=== PATIENT | female | born 1955 | race Caucasian/White ===

== ENCOUNTER 2019-01-25 14:06 | Emergency (ER) | payer BC ==
[2019-01-25 14:15] VITALS: BP 170/100
[2019-01-25 14:37] LABS: Influenza A Molecular NEGATIVE (Negative); Influenza B Molecular NEGATIVE (Negative)
--- NOTE | 2019-01-25 14:37 | UC ---
FLU HPI - HPI Summary HPI Summary: 63 year old female with PMH + for HTN, on lisinopril with cough, nasal congestion, chills, body aches, mild throat pain x 1-2 days. worst last night , difficulty sleeping due to throat pain, cough. - History of Current Complaint Chief Complaint: UCGeneralIllness Stated Complaint: FLU LIKE SYMPTOMS Time Seen by Provider: 01/25/19 14:22 Hx Obtained From: Patient ?: No Onset/Duration: Sudden Onset, Lasting Days Severity Currently: Mild Severity Initially: Mild Pain Intensity: 0 Pain Scale Used: 0-10 Numeric Associated Signs & Symptoms: Positive: Myalgia, Cough, Sore Throat, Nasal Congestion, Headache Related Hx: Possible Flu/Infectious Exposure - Allergy/Home Medications Allergies/Adverse Reactions: Allergies Allergy/AdvReac Type Severity Reaction Status Date / Time No Known Allergies Allergy Verified 01/25/19 14:14 PMH/Surg Hx/FS Hx/Imm Hx Previously Healthy: Yes - HTN - Surgical History Surgical History: Yes Surgery Procedure, Year, and Place: oovarectomy - Family History Known Family History: Positive: Cardiac Disease - father, and mother - Social History Alcohol Use: Daily Alcohol Amount: 1-2 GLASSES OF WINE Substance Use Type: None Smoking Status (MU): Never Smoked Tobacco Have You Smoked in the Last Year: No Review of Systems All Other Systems Reviewed And Are Negative: Yes Constitutional: Positive: Chills, Fatigue ENT: Positive: Sore Throat, Nasal Discharge, Sinus Congestion, Sinus Pain/ Tenderness Respiratory: Positive: Cough Is Patient Immunocompromised?: No Physical Exam Triage Information Reviewed: Yes Appearance: No Pain Distress, Well-Nourished, Ill-Appearing - mild Vital Signs: Initial Vital Signs Temp 98.3 F 01/25/19 14:11 Pulse 75 01/25/19 14:11 Resp 18 01/25/19 14:11 BP 170/100 01/25/19 14:11 Pulse Ox 98 01/25/19 14:11 Vital Signs Reviewed: Yes Eyes: Positive: Conjunctiva Clear ENT: Positive: Pharyngeal erythema - mild, TMs normal, Sinus tenderness - maxillary, Uvula midline. Negative: TM bulging, TM dull, TM red, Tonsillar swelling, Tonsillar exudate Neck: Positive: Supple, Nontender, Enlarged Nodes @ - miniaml submand, periaur b /l tenderness Respiratory: Positive: Chest non-tender, Lungs clear, Normal breath sounds, No respiratory distress, No accessory muscle use. Negative: Crackles, Rhonchi, Stridor, Wheezing Cardiovascular: Positive: RRR, No Murmur Psychological Exam: Normal Flu Course/Dx - Course Course Of Treatment: rapi dflu negative, sinusitis, abx given, follow up with PCP if no improvement within 2-3 days - Differential Dx/Diagnosis Differential Diagnosis/HQI/PQRI: RSV, Upper Respiratory Infection Provider Diagnosis: Sinusitis Discharge - Sign-Out/Discharge Documenting (check all that apply): Patient Departure All imaging exams completed and their final reports reviewed: No Studies - Discharge Plan Condition: Good Disposition: HOME Prescriptions: Azithromyxin LAUREN (NF) [Z-Lauren (Zithromax) 250 mg tabs #6] 2 tab PO .TODAY, THEN 1 DAILY #6 tab Patient Education Materials: Sinusitis (ED) Referrals: Holli Leach MD [Primary Care Provider] - Additional Instructions: - Increase fluid intake - Humidifier at night to help with coughing - Good Hygiene, hand washing to prevent spread - Over the counter medications for symptoms - Motrin/ Tylenol as needed for pain, fever - Antibiotics as directed - Billing Disposition and Condition Condition: GOOD Disposition: Home
== END 2019-01-25 14:47 | disposition home or self-care (01) ==
LOC: UCEAST 14:06
DX: J32.9 Chronic sinusitis, unspecified (principal); I10 Essential (primary) hypertension
CPT/HCPCS: 99212; G0463

== ENCOUNTER 2019-06-27 16:10 | Emergency (ER) | payer BC ==
[2019-06-27] MEDS ORDERED: diPHENhydraMINE IV* 50 MG/ML 1 ml VIAL (BENADRYL) IM ONE (16:16)
[2019-06-27] MEDS ORDERED: methylPREDNISolone 125 MG* 2 ML VIAL IM ONE (16:17)
[2019-06-27 16:19] VITALS: BP 195/110
[2019-06-27] MEDS ORDERED: EPINEPHRINE 1 MG/ML 1 ML VIAL IM ONE (16:20)
--- NOTE | 2019-06-27 16:24 | UC ---
Allergic Reaction HPI - HPI Summary HPI Summary: Patient is havingan allergic reaction to 3 bee stings from 45 min ago. one on the 2nd MCP joint, 2 on the left leg. ther are red and swollen, she denies any airway complaints at this time. - History of Current Complaint Stated Complaint: BEE SINGS Hx Obtained From: Patient ?: No Onset/Duration: Sudden Onset, Lasting Minutes Severity Initially: Mild Severity Currently: Moderate - patient started having ticking and coughing feeling in her throat Character: Swelling, Hives Alleviating Factor(s): Antihistamines, Epinephrine - Allergies/Home Medications Allergies/Adverse Reactions: Allergies Allergy/AdvReac Type Severity Reaction Status Date / Time No Known Allergies Allergy Verified 06/27/19 16:48 PMH/Surg Hx/FS Hx/Imm Hx Previously Healthy: Yes - Surgical History Surgical History: Yes Surgery Procedure, Year, and Place: oovarectomy - Family History Known Family History: Positive: Cardiac Disease - father, and mother - Social History Alcohol Use: Daily Alcohol Amount: 1-2 GLASSES OF WINE Substance Use Type: None Smoking Status (MU): Never Smoked Tobacco Have You Smoked in the Last Year: No Review of Systems All Other Systems Reviewed And Are Negative: Yes Skin: Positive: Other - hives Psychological: Positive: Anxious Is Patient Immunocompromised?: No Physical Exam Triage Information Reviewed: Yes Appearance: Well-Nourished, Ill-Appearing, Pain Distress Vital Signs Reviewed: Yes Eye Exam: Normal ENT Exam: Normal Dental Exam: Normal Neck exam: Normal Respiratory Exam: Normal Respiratory: Positive: Chest non-tender, Lungs clear, Normal breath sounds Cardiovascular Exam: Normal Cardiovascular: Positive: RRR, No Murmur, Pulses Normal Abdominal Exam: Normal Bowel Sounds: Positive: Present Musculoskeletal Exam: Normal Neurological Exam: Normal Psychological Exam: Normal Skin: Positive: Other - 3 areas of swelling and erythema Allergic Reaction Course/Dx - Course Course Of Treatment: hx obtained, exam performed ,meds reviewed, patient has hisotry of moderate reactions to bee stings, she does have an epi pen which she did not use. she initally presented with localized reactions, but during traige started to get feeling of ticking and swelling of the throat, epi given and IV started, she was transported to ER via [facility] ambulance for further monitoring - Differential Dx/Diagnosis Differential Diagnosis/HQI/PQRI: Anaphylaxis, Urticaria Provider Diagnosis: Anaphylactic reaction Discharge - Sign-Out/Discharge Documenting (check all that apply): Patient Departure All imaging exams completed and their final reports reviewed: No Studies - Discharge Plan Condition: Good Disposition: TRANS HIGHER LVL OF CARE FAC Referrals: Holli Leach MD [Medical Doctor] - - Billing Disposition and Condition Condition: GOOD Disposition: Trans Higher Lvl of Care Fac - Attestation Statements Provider Attestation: I was available for consult. This patient was seen by the RAUL. The patient was not presented to , seen by or examined by ar -Bryan Ramirez MD
[2019-06-27] MEDS ORDERED: NS 0.9% 1000 ML** 1,000 ML IV ONE (16:33)
== END 2019-06-27 16:38 | disposition short-term general hospital (02) ==
LOC: UCCORT 16:10
DX: T63.441A Toxic effect of venom of bees, accidental (unintentional), initial encounter (principal); T78.2XXA Anaphylactic shock, unspecified, initial encounter; R07.0 Pain in throat; Y92.9 Unspecified place or not applicable
CPT/HCPCS: 96372; 99213; G0463; J1200; J2930